=== PATIENT | male | born 2000 | race American Indian/Alaskan Native ===

== ENCOUNTER 2021-05-30 04:24 | Emergency (ER) | payer SELFPAY ==
[2021-05-30 04:28] VITALS: BP 129/73
== END 2021-05-30 06:20 | disposition home or self-care (01) ==
LOC: ED 04:24
DX: R68.84 Jaw pain (principal); Z53.21 Procedure and treatment not carried out due to patient leaving prior to being seen by health care provider; Y04.8XXA Assault by other bodily force, initial encounter; Y93.89 Activity, other specified; Y92.89 Other specified places as the place of occurrence of the external cause; Y99.8 Other external cause status